=== PATIENT | female | born 1955 | race Caucasian/White ===

== ENCOUNTER → 2017-03-30 | Outpatient (CLI) | payer BC ==
--- NOTE | 2017-04-01 09:41 | MM ---
Reason for exam: screening (asymptomatic). Last mammogram was performed 1 year and 9 months ago. History: Patient is postmenopausal, has history of other cancer at age 28, and had first child at age 29. Physical Findings: A clinical breast exam by your physician is recommended on an annual basis and results should be correlated with mammographic findings. MG Screening Mammo w CAD Bilateral CC and MLO view(s) were taken. Prior study comparison: June 28, 2015, bilateral MG screening mammo w CAD. June 09, 2014, bilateral MG screening mammo w CAD. June 06, 2013, bilateral digital screening mammo w/CAD. There are scattered fibroglandular densities. There is chronic nodularity in the right breast. No significant changes when compared with prior studies. ASSESSMENT: Negative, BI-RAD 1 RECOMMENDATION: Routine screening mammogram of both breasts in 1 year.
== END | disposition home or self-care (01) ==
LOC: RADMAMWWP 16:54
PROVIDERS: ATTEND Family Medicine
DX: Z12.31 Encounter for screening mammogram for malignant neoplasm of breast (principal)

== ENCOUNTER → 2019-01-20 | Outpatient (CLI) | payer BC ==
--- NOTE | 2019-01-21 11:09 | MM ---
Reason for exam: screening (asymptomatic). Last mammogram was performed 1 year and 10 months ago. History: Patient is postmenopausal, has history of other cancer at age 28, and had first child at age 29. Physical Findings: A clinical breast exam by your physician is recommended on an annual basis and results should be correlated with mammographic findings. MG Screening Mammo w CAD Bilateral CC and MLO view(s) were taken. XCCL view(s) were taken of the right breast. Prior study comparison: March 30, 2017, bilateral MG screening mammo w CAD. June 28, 2015, bilateral MG screening mammo w CAD. There are scattered fibroglandular densities. Enlarging right upper outer quadrant known sebaceous cyst seen back to 2013. No suspicious abnormality. ASSESSMENT: Benign, BI-RAD 2 RECOMMENDATION: Routine screening mammogram of both breasts in 1 year. Manage on a clinical basis with regard to enlarging known right sebaceous cyst. Dermatology consult.
== END | disposition home or self-care (01) ==
LOC: RADMAMWWP 16:57
PROVIDERS: ATTEND Obstetrics & Gynecology
DX: Z12.31 Encounter for screening mammogram for malignant neoplasm of breast (principal)
CPT/HCPCS: 77067

== ENCOUNTER → 2020-07-12 | Outpatient (CLI) | payer BC, MEDICARE ==
--- NOTE | 2020-07-18 09:27 | MM ---
Reason for exam: screening (asymptomatic). Last mammogram was performed 1 year and 6 months ago. History: Patient is postmenopausal, has history of other cancer at age 28, and had first child at age 29. Physical Findings: A clinical breast exam by your physician is recommended on an annual basis and results should be correlated with mammographic findings. MG Screening Mammo w CAD Bilateral CC and MLO view(s) were taken. Prior study comparison: January 20, 2019, bilateral MG screening mammo w CAD. March 30, 2017, bilateral MG screening mammo w CAD. There are scattered fibroglandular densities. Redemonstrated right mole. Benign appearing bilateral calcifications. No significant changes when compared with prior studies. ASSESSMENT: Benign, BI-RAD 2 RECOMMENDATION: Routine screening mammogram of both breasts in 1 year.
== END | disposition home or self-care (01) ==
LOC: RADMAMWWP 14:59
PROVIDERS: ATTEND Obstetrics & Gynecology
DX: Z12.31 Encounter for screening mammogram for malignant neoplasm of breast (principal)
CPT/HCPCS: 77067

== ENCOUNTER 2021-01-05 14:29 | Inpatient (IN) | payer MEDICARE ==
[2021-01-05] MEDS ORDERED: SODIUM CHLORIDE 0.9% 1,000 ML IV STA (15:20)
[2021-01-05] MEDS ORDERED: ONDANSETRON ODT 8 MG TAB.RAPDIS PO STA (15:20)
[2021-01-05] MEDS ORDERED: IBUPROFEN 600 MG TAB PO STA (15:21)
[2021-01-05] MEDS ORDERED: ACETAMINOPHEN TAB 500 MG TAB PO STA (15:21)
[2021-01-05 15:49] LABS: Appearance,Urine Cloudy (Clear); Bacteria,Urine Rare /hpf; Bilirubin,Urine Negative (Negative); Blood,Urine Negative (Negative); Color,Urine Yellow; Glucose,Urine (UA) Negative (Negative); Hyaline Casts,Urine 1 /lpf (0-2); Ketones,Urine Negative (Negative); Leukocyte Esterase,Urine Large (Negative); Mucus,Urine Rare /hpf; Nitrite,Urine Negative (Negative); Protein,Urine Negative (Negative); RBC,Urine 7 /hpf (0-5); Specific Gravity,Urine 1.022 (1.001-1.035); Squamous Epithelial Cell,Urine 10 /hpf (0-4); Urobilinogen,Urine <2.0 mg/dL (<2.0); WBC,Urine 1 /hpf (0-5)
[2021-01-05 15:58] LABS: ALT 30 U/L (4-34); AST 32 U/L (14-36); African American GFR (CKD) >90 (>60 ml/min/1.73 sqM); Albumin 3.8 g/dL (3.5-5.0); Alkaline Phosphatase 80 U/L (38-126); Amylase 47 U/L (30-110); Anion Gap 10 mmol/L; Blood Urea Nitrogen 19 mg/dL (7-17); Calcium 9.2 mg/dL (8.4-10.2); Carbon Dioxide 22 mmol/L (22-30); Chloride 103 mmol/L (98-107); Glucose 108 mg/dL (74-99); Lipase 40 U/L (23-300); Non-African American GFR(CKD) >90 (>60 ml/min/1.73 sqM); Potassium 3.9 mmol/L (3.5-5.1); Sodium 135 mmol/L (137-145); Total Bilirubin 0.9 mg/dL (0.2-1.3); Total Protein 6.7 g/dL (6.3-8.2)
[2021-01-05 16:04] LABS: Basophils % (A) 0 %; Eosinophils # (A) 0.2 k/uL (0-0.7); Eosinophils % (A) 1 %; HCT 37.8 % (34.0-46.0); HGB 12.8 gm/dL (11.4-16.0); Lymphocytes # (A) 0.5 k/uL (1.0-4.8); Lymphocytes % (A) 4 %; MCH 29.5 pg (25.0-35.0); MCHC 33.7 g/dL (31.0-37.0); MCV 87.4 fL (80.0-100.0); Mean Platelet Volume 7.5; Monocytes # (A) 0.6 k/uL (0-1.0); Monocytes % (A) 5 %; Neutrophils # (A) 11.2 k/uL (1.3-7.7); Neutrophils % (A) 89 %; Platelet Count 227 k/uL (150-450); RBC 4.33 m/uL (3.80-5.40); RDW 12.7 % (11.5-15.5); WBC 12.5 k/uL (3.8-10.6)
--- NOTE | 2021-01-05 17:13 | CT ---
EXAMINATION TYPE: CT abdomen pelvis w con DATE OF EXAM: 01/05/2021 COMPARISON: None HISTORY: Right lower quadrant tenderness, nausea and fever. CT DLP: 516.3 mGycm Automated exposure control for dose reduction was used. CONTRAST: Performed with IV Contrast, patient injected with 100 mL of Isovue 300. Lung bases are clear of consolidation. There is mild subsegmental atelectasis. Heart size is normal. There is no pericardial effusion. There is small hiatal hernia. The stomach is intact. Liver spleen pancreas gallbladder appear normal. Bile ducts are not dilated. There is no adrenal mass. Kidneys show satisfactory contrast opacification. There is no hydronephrosi s. Ureters are not dilated. Delayed images show normal renal excretion. There is no retroperitoneal a denopathy. Bladder distends smoothly. There is no inguinal hernia. There is no evidence of pelvic mas s. Uterus appears normal. There is disc space narrowing at L4-5 with disc herniation posteriorly. There is no compression fract ure. There is no evidence of a pelvic mass. There is no free fluid in the pelvis. There is retained fecal material in the large bowel. There is tubular structure with some mild adjace nt fat stranding inferior to the cecum and measuring up to 11 mm related to acute appendicitis. IMPRESSION: Thickened appendix with fluid and surrounding inflammatory changes related to acute appendicitis. Mild constipation. Mild posterior L4-5 lumbar disc herniation.
[2021-01-05] MEDS ORDERED: PIPERACILLIN-TAZOBACTAM 3.375 GM in SODIUM CHLORIDE 0.9% 100 ML IVPB STA (17:16)
--- NOTE | 2021-01-05 17:50 | ED ---
General Adult HPI - General Chief complaint: Nausea/Vomiting/Diarrhea Stated complaint: Fever,Nausea Time Seen by Provider: 01/05/21 14:38 Source: patient, RN notes reviewed Mode of arrival: ambulatory Limitations: no limitations - History of Present Illness Initial comments: 65-year-old female without any significant medical problems presents to the em ergency room for a chief complaint of abdominal pain. Patient reports that she has had right lower quadrant abdominal pain since last night. She has had some nausea associated with this as well. Denies any vomiting. States bowel movements have been normal. States she has not had an appetite and did not want to eat anything today. Overall she is not feeling well. Patient states she checked her temperature today and it was 102.7 at home. She did not take Motrin or Tylenol. Patient states she has never had abdominal surgery, does not have a surgeon.Patient has no other complaints at this time including shortness of breath, chest pain, headache, or visual changes. - Related Data Home Medications Medication Instructions Recorded Confirmed prednisoLONE ACETATE 1% OPHTH 1 drop RIGHT EYE QID 01/05/21 01/05/21 [Pred Forte 1%] Allergies Allergy/AdvReac Type Severity Reaction Status Date / Time trey Allergy Anaphylaxis Verified 01/05/21 17:18 Review of Systems ROS Statement: Those systems with pertinent positive or pertinent negative responses have been documented in the HPI. ROS Other: All systems not noted in ROS Statement are negative. Past Medical History Past Medical History: No Reported History History of Any Multi-Drug Resistant Organisms: None Reported Past Surgical History: No Surgical Hx Reported Past Psychological History: Depression Smoking Status: Never smoker Past Alcohol Use History: Occasional Past Drug Use History: None Reported General Exam Limitations: no limitations General appearance: alert, in no apparent distress Head exam: Present: atraumatic, normocephalic, normal inspection Eye exam: Present: normal appearance, PERRL, EOMI. Absent: scleral icterus, conjunctival injection, periorbital swelling ENT exam: Present: normal exam, mucous membranes moist Neck exam: Present: normal inspection. Absent: tenderness, meningismus, lymphadenopathy Respiratory exam: Present: normal lung sounds bilaterally. Absent: respiratory distress, wheezes, rales, rhonchi, stridor Cardiovascular Exam: Present: regular rate, normal rhythm, normal heart sounds. Absent: systolic murmur, diastolic murmur, rubs, gallop, clicks GI/Abdominal exam: Present: soft, tenderness (RLQ tenderness without gaurding or rebound), normal bowel sounds. Absent: distended, guarding, rebound, rigid Back exam: Absent: CVA tenderness (R), CVA tenderness (L) Neurological exam: Present: alert Course Vital Signs 01/05/21 01/05/21 14:31 15:46 Temperature 99.2 F Pulse Rate 120 H 98 Respiratory 16 18 Rate Blood Pressure 106/70 105/69 O2 Sat by Pulse 95 99 Oximetry Medical Decision Making - Medical Decision Making Vitals are stable. Patient initially tachycardic which did improve. This is likely secondary to her temperature of 100.7 that I rechecked upon arrival. The physicall exam did reveal right lower quadrant tenderness. Laboratory evaluation was initiated which showed leukocytosis of 12.5 with a left shift. CMP unremarkable. Urinalysis unremarkable. Mary virus negative. CT abdomen and pelvis did show a thickened appendix with fluid and surrounding inflammatory changes related to acute appendicitis. Patient started on Zosyn. Consult to Dr. Ordonez who requests an EKG, liquid diet until midnight and then nothing by mouth. - Lab Data Result diagrams: 01/05/21 15:41 01/05/21 15:41 Lab Results 01/05/21 01/05/21 01/05/21 Range/Units 15:30 15:41 15:41 WBC 12.5 H (3.8-10.6) k/uL RBC 4.33 (3.80-5.40) m/uL Hgb 12.8 (11.4-16.0) gm/dL Hct 37.8 (34.0-46.0) % MCV 87.4 (80.0-100.0) fL MCH 29.5 (25.0-35.0) pg MCHC 33.7 (31.0-37.0) g/dL RDW 12.7 (11.5-15.5) % Plt Count 227 (150-450) k/uL MPV 7.5 Neutrophils % 89 % Lymphocytes % 4 % Monocytes % 5 % Eosinophils % 1 % Basophils % 0 % Neutrophils # 11.2 H (1.3-7.7) k/uL Lymphocytes # 0.5 L (1.0-4.8) k/uL Monocytes # 0.6 (0-1.0) k/uL Eosinophils # 0.2 (0-0.7) k/uL Basophils # 0.0 (0-0.2) k/uL Sodium (137-145) mmol/L Potassium (3.5-5.1) mmol/L Chloride (98-107) mmol/L Carbon Dioxide (22-30) mmol/L Anion Gap mmol/L BUN (7-17) mg/dL Creatinine (0.52-1.04) mg/dL Est GFR (CKD-EPI)AfAm (>60 ml/min/1.73 sqM) Est GFR (CKD-EPI)NonAf (>60 ml/min/1.73 sqM) Glucose (74-99) mg/dL Plasma Lactic Acid Antonio (0.7-2.0) mmol/L Calcium (8.4-10.2) mg/dL Total Bilirubin (0.2-1.3) mg/dL AST (14-36) U/L ALT (4-34) U/L Alkaline Phosphatase (38-126) U/L Total Protein (6.3-8.2) g/dL Albumin (3.5-5.0) g/dL Amylase (30-110) U/L Lipase (23-300) U/L Urine Color Yellow Urine Appearance Cloudy H (Clear) Urine pH 7.0 (5.0-8.0) Ur Specific Montague 1.022 (1.001-1.035) Urine Protein Negative (Negative) Urine Glucose (UA) Negative (Negative) Urine Ketones Negative (Negative) Urine Blood Negative (Negative) Urine Nitrite Negative (Negative) Urine Bilirubin Negative (Negative) Urine Urobilinogen <2.0 (<2.0) mg/dL Ur Leukocyte Esterase Large H (Negative) Urine RBC 7 H (0-5) /hpf Urine WBC 1 (0-5) /hpf Ur Squamous Epith Cells 10 H (0-4) /hpf Urine Bacteria Rare H (None) /hpf Hyaline Casts 1 (0-2) /lpf Urine Mucus Rare H (None) /hpf Coronavirus (PCR) Not Detected (Not Detectd) 01/05/21 01/05/21 Range/Units 15:41 15:41 WBC (3.8-10.6) k/uL RBC (3.80-5.40) m/uL Hgb (11.4-16.0) gm/dL Hct (34.0-46.0) % MCV (80.0-100.0) fL MCH (25.0-35.0) pg MCHC (31.0-37.0) g/dL RDW (11.5-15.5) % Plt Count (150-450) k/uL MPV Neutrophils % % Lymphocytes % % Monocytes % % Eosinophils % % Basophils % % Neutrophils # (1.3-7.7) k/uL Lymphocytes # (1.0-4.8) k/uL Monocytes # (0-1.0) k/uL Eosinophils # (0-0.7) k/uL Basophils # (0-0.2) k/uL Sodium 135 L (137-145) mmol/L Potassium 3.9 (3.5-5.1) mmol/L Chloride 103 (98-107) mmol/L Carbon Dioxide 22 (22-30) mmol/L Anion Gap 10 mmol/L BUN 19 H (7-17) mg/dL Creatinine 0.60 (0.52-1.04) mg/dL Est GFR (CKD-EPI)AfAm >90 (>60 ml/min/1.73 sqM) Est GFR (CKD-EPI)NonAf >90 (>60 ml/min/1.73 sqM) Glucose 108 H (74-99) mg/dL Plasma Lactic Acid Antonio 0.8 (0.7-2.0) mmol/L Calcium 9.2 (8.4-10.2) mg/dL Total Bilirubin 0.9 (0.2-1.3) mg/dL AST 32 (14-36) U/L ALT 30 (4-34) U/L Alkaline Phosphatase 80 (38-126) U/L Total Protein 6.7 (6.3-8.2) g/dL Albumin 3.8 (3.5-5.0) g/dL Amylase 47 (30-110) U/L Lipase 40 (23-300) U/L Urine Color Urine Appearance (Clear) Urine pH (5.0-8.0) Ur Specific Montague (1.001-1.035) Urine Protein (Negative) Urine Glucose (UA) (Negative) Urine Ketones (Negative) Urine Blood (Negative) Urine Nitrite (Negative) Urine Bilirubin (Negative) Urine Urobilinogen (<2.0) mg/dL Ur Leukocyte Esterase (Negative) Urine RBC (0-5) /hpf Urine WBC (0-5) /hpf Ur Squamous Epith Cells (0-4) /hpf Urine Bacteria (None) /hpf Hyaline Casts (0-2) /lpf Urine Mucus (None) /hpf Coronavirus (PCR) (Not Detectd) Disposition Clinical Impression: Appendicitis Disposition: ADMITTED IP TO THIS HOSP Is patient prescribed a controlled substance at d/c from ED?: No Referrals: Robert Cabrera MD [Primary Care Provider] - 1-2 days Time of Disposition: 17:50
[2021-01-05] MEDS ORDERED: HYDROmorphone 0.5 MG/0.5 ML SYRINGE IVP PRN (17:51)
[2021-01-05] MEDS ORDERED: NALOXONE 0.4 MG/ML 1 ML VIAL IV PRN (17:51)
[2021-01-05] MEDS ORDERED: ONDANSETRON 4 MG/2 ML VIAL IVP PRN (17:51)
[2021-01-05] MEDS: PIPERACILLIN-TAZOBACTAM 3.375 GM in SODIUM CHLORIDE 0.9% 100 ML IVPB SCH (19:28)
[2021-01-05] MEDS: ENOXAPARIN 30 MG/0.3 ML SYRINGE SQ SCH (19:43)
--- NOTE | 2021-01-05 19:54 | P.GSHP ---
History of Present Illness H&P Date: 01/05/21 CHIEF COMPLAINT: Right lower quadrant abdominal pain with appendicitis less than 1 day. HISTORY OF PRESENT ILLNESS: The patient is a previously healthy 65-year-old female who presents with less than 1 day history of periumbilical with right lower quadrant abdominal pain that started earlier in the morning. She denies any previous episodes. No reports of diarrhea. No reports of prior abdominal pain. She states the intensity of the pain is mild to moderate. She denies any alleviating factors. PAST MEDICAL HISTORY: Please see list and reviewed. PAST SURGICAL HISTORY: Please see list and reviewed. CURRENT MEDICATIONS: Please see list and reviewed. ALLERGIES: Please see list and reviewed. SOCIAL HISTORY: Please see list and reviewed. FAMILY HISTORY: Please see list and reviewed. REVIEW OF ORGAN SYSTEMS: CONSTITUTIONAL: Denies any fever or chills. HEENT: Denies any trouble with hearing or nosebleeds. No difficulty swallowing. Has trouble with vision and previous left eye surgery. LYMPHATIC: The patient denies any lumps and bumps around the neck. ENDOCRINE: Denies any thyroid disorders. Denies any blood sugar glucose intolerance. RESPIRATORY: Denies shortness of breath including chronic cough. CARDIOVASCULAR: Denies history of chest pain with exertion. GASTROINTESTINAL: Denies regurgitation of bile at night as well as intermittent nausea. No blood in stools. GENITOURINARY: Denies any blood in urine or increased urinary frequency. MUSCULOSKELETAL: Denies current joint arthritis. NEUROLOGIC: Denies any numbness or tingling along the distal extremities. No seizure disorders or headaches. PSYCHIATRIC: Has depression. No suicidal ideation. HEMATOLOGIC: Denies any abnormal bleeding or bruising. GENERAL MEDICAL CARE: The patient sees primary care physician regularly. SKIN: history of basal cell cancer. PHYSICAL EXAMINATION: Vital signs: Reviewed GENERAL: Well developed and in no acute distress. HEENT: No sclera icterus. Extraocular movements grossly intact. Moist buccal mucosa. Head is atraumatic, normocephalic. Hears conversational speech. No nasal drainage. NECK: Supple without lymphadenopathy. No JV distention. CHEST: Non-labored respirations and equal bilateral excursions. CARDIOVASCULAR: Regular rate and rhythm. Palpable 2+ radial pulses. ABDOMEN: Soft, tender at the right lower quadrant. No peritonitis. MUSCULOSKELETAL: No clubbing, cyanosis or edema. NEUROLOGIC: No focal or lateralizing signs. Cranial nerves II through XII grossly intact. PSYCH: Appropriate affect. Alert and oriented to person, place and time. SKIN: Well perfused. Good skin turgor. LABS: WBC over 12,000. Coronavirus negative. Urinalysis positive for leukocyte esterase and blood with pyuria STUDIES: CT of the abdomen and pelvis independently reviewed with dilated appendix. Moderate stool burden throughout the entire colon. This is my independent interpretation. REPORT: CT of the abdomen and pelvis report reviewed demonstrating dilated appendix including L4 to L5 disc herniation EKG: Report reviewed demonstrating normal sinus rhythm ASSESSMENT: 1. Acute appendicitis 2. Leukocytosis 3. Depressive disorder 4. Pyuria PLAN: 1. I have discussed benefits and risks of robotic appendectomy. 2. Antibiotics, zosyn for leukocytosis 3. Clear liquid diet withnothing by mouth after midnight 4. DVT prophylaxis Past Medical History Past Medical History: No Reported History History of Any Multi-Drug Resistant Organisms: None Reported Past Surgical History: No Surgical Hx Reported Past Psychological History: Depression Smoking Status: Never smoker Past Alcohol Use History: Occasional Past Drug Use History: None Reported - Past Family History Father Family Medical History: No Reported History Medications and Allergies Home Medications Medication Instructions Recorded Confirmed Type prednisoLONE ACETATE 1% OPHTH 1 drop RIGHT EYE QID 01/05/21 01/05/21 History [Pred Forte 1%] Allergies Allergy/AdvReac Type Severity Reaction Status Date / Time trey Allergy Anaphylaxis Verified 01/05/21 19:48 Surgical - Exam Vital Signs Temp Pulse Resp BP Pulse Ox 99.2 F 120 H 16 106/70 95 01/05/21 14:31 01/05/21 14:31 01/05/21 14:31 01/05/21 14:31 01/05/21 14:31 Results - Labs 01/06/21 07:13 01/05/21 15:41 Abnormal Lab Results - Last 24 Hours (Table) 01/05/21 01/05/21 01/05/21 Range/Units 15:41 15:41 15:41 WBC 12.5 H (3.8-10.6) k/uL Neutrophils # 11.2 H (1.3-7.7) k/uL Lymphocytes # 0.5 L (1.0-4.8) k/uL Sodium 135 L (137-145) mmol/L BUN 19 H (7-17) mg/dL Glucose 108 H (74-99) mg/dL Urine Appearance Cloudy H (Clear) Ur Leukocyte Esterase Large H (Negative) Urine RBC 7 H (0-5) /hpf Ur Squamous Epith Cells 10 H (0-4) /hpf Urine Bacteria Rare H (None) /hpf Urine Mucus Rare H (None) /hpf Diabetes panel 01/05/21 Range/Units 15:41 Sodium 135 L (137-145) mmol/L Potassium 3.9 (3.5-5.1) mmol/L Chloride 103 (98-107) mmol/L Carbon Dioxide 22 (22-30) mmol/L BUN 19 H (7-17) mg/dL Creatinine 0.60 (0.52-1.04) mg/dL Glucose 108 H (74-99) mg/dL Calcium 9.2 (8.4-10.2) mg/dL AST 32 (14-36) U/L ALT 30 (4-34) U/L Alkaline Phosphatase 80 (38-126) U/L Total Protein 6.7 (6.3-8.2) g/dL Albumin 3.8 (3.5-5.0) g/dL Calcium panel 01/05/21 Range/Units 15:41 Calcium 9.2 (8.4-10.2) mg/dL Albumin 3.8 (3.5-5.0) g/dL Pituitary panel 01/05/21 Range/Units 15:41 Sodium 135 L (137-145) mmol/L Potassium 3.9 (3.5-5.1) mmol/L Chloride 103 (98-107) mmol/L Carbon Dioxide 22 (22-30) mmol/L BUN 19 H (7-17) mg/dL Creatinine 0.60 (0.52-1.04) mg/dL Glucose 108 H (74-99) mg/dL Calcium 9.2 (8.4-10.2) mg/dL Adrenal panel 01/05/21 Range/Units 15:41 Sodium 135 L (137-145) mmol/L Potassium 3.9 (3.5-5.1) mmol/L Chloride 103 (98-107) mmol/L Carbon Dioxide 22 (22-30) mmol/L BUN 19 H (7-17) mg/dL Creatinine 0.60 (0.52-1.04) mg/dL Glucose 108 H (74-99) mg/dL Calcium 9.2 (8.4-10.2) mg/dL Total Bilirubin 0.9 (0.2-1.3) mg/dL AST 32 (14-36) U/L ALT 30 (4-34) U/L Alkaline Phosphatase 80 (38-126) U/L Total Protein 6.7 (6.3-8.2) g/dL Albumin 3.8 (3.5-5.0) g/dL Assessment and Plan (1) Leukocytosis Current Visit: Yes Status: Acute Code(s): D72.829 - ELEVATED WHITE BLOOD CELL COUNT, UNSPECIFIED SNOMED Code(s): 190045898 (2) Depressive disorder Current Visit: Yes Status: Acute Code(s): F32.9 - MAJOR DEPRESSIVE DISORDER, SINGLE EPISODE, UNSPECIFIED SNOMED Code(s): 97549657 (3) Pyuria Current Visit: Yes Status: Acute Code(s): R82.81 - PYURIA SNOMED Code(s): 7408995 (4) Appendicitis Current Visit: Yes Status: Acute Code(s): K37 - UNSPECIFIED APPENDICITIS SNOMED Code(s): 13568580
[2021-01-05] MEDS ORDERED: SODIUM CHLORIDE 0.9% 2,000 ML IV ONE (21:21)
[2021-01-05] MEDS: SODIUM CHLORIDE 0.9% 1,000 ML IV SCH (23:50)
[2021-01-05] MEDS: ACETAMINOPHEN TAB 325 MG TAB PO PRN (23:53)
[2021-01-06] MEDS: PIPERACILLIN-TAZOBACTAM 3.375 GM in SODIUM CHLORIDE 0.9% 100 ML IVPB SCH ×3 (03:24→18:46)
[2021-01-06] MEDS: ACETAMINOPHEN TAB 325 MG TAB PO PRN ×2 (03:50→16:28)
[2021-01-06] MEDS: SODIUM CHLORIDE 0.9% 1,000 ML IV SCH ×3 (03:51→23:10)
--- NOTE | 2021-01-06 07:11 | P.HPADDEND ---
H&P Addendum H&P Addendum Date: 01/06/21 Patient presents with right lower quadrant abdominal pain and appendicitis. Benefits and risks of appendectomy described. We'll proceed with robotic appendectomy.
[2021-01-06 07:30] LABS: Basophils % (A) 0 %; Eosinophils # (A) 0.1 k/uL (0-0.7); Eosinophils % (A) 1 %; HCT 35.4 % (34.0-46.0); HGB 11.8 gm/dL (11.4-16.0); Lymphocytes # (A) 0.3 k/uL (1.0-4.8); Lymphocytes % (A) 4 %; MCH 29.9 pg (25.0-35.0); MCHC 33.4 g/dL (31.0-37.0); MCV 89.5 fL (80.0-100.0); Mean Platelet Volume 7.3; Monocytes # (A) 0.2 k/uL (0-1.0); Monocytes % (A) 3 %; Neutrophils # (A) 6.6 k/uL (1.3-7.7); Neutrophils % (A) 92 %; Platelet Count 203 k/uL (150-450); RBC 3.95 m/uL (3.80-5.40); RDW 13.1 % (11.5-15.5); WBC 7.2 k/uL (3.8-10.6)
[2021-01-06] MEDS: PANTOPRAZOLE 40 MG/10 ML VIAL IV SCH (07:42)
[2021-01-06] MEDS ORDERED: NEOSTIGMINE 1 MG/ML 10 ML VIAL ONE (08:10)
[2021-01-06] MEDS ORDERED: GLYCOPYRROLATE 0.2 MG/ML 2 ML VIAL ONE (08:10)
[2021-01-06] MEDS ORDERED: PHENYLEPHRINE-0.9% NACL SYG 1,000 MCG/10 ML SYRINGE ONE (08:10)
[2021-01-06] MEDS ORDERED: ONDANSETRON 4 MG/2 ML VIAL ONE (08:10)
[2021-01-06] MEDS ORDERED: PROPOFOL 10 MG/ML 20 ML VIAL IV ONE (08:10)
[2021-01-06] MEDS ORDERED: ROCURONIUM 10 MG/ML (5 ML VIAL) IV ONE (08:10)
[2021-01-06] MEDS ORDERED: MIDAZOLAM 2 MG/2 ML VIAL ONE (08:10)
[2021-01-06] MEDS ORDERED: DEXAMETHASONE SOD PHOSPHATE 10 MG/ML 1 ML VIAL ONE (08:10)
[2021-01-06] MEDS ORDERED: SUCCINYLCHOLINE CHLORIDE 100 MG/5 ML SYR IV ONE (08:10)
[2021-01-06] MEDS ORDERED: LIDOCAINE 1% INJ 10MG/ML (20 ML MDV) ONE (08:10)
[2021-01-06] MEDS ORDERED: fentaNYL (PF) 50 MCG/ML 2 ML AMP ONE (08:10)
[2021-01-06] MEDS ORDERED: SODIUM CHLORIDE 0.9% 1,000 ML IV ONE (08:13)
[2021-01-06] MEDS ORDERED: SODIUM CHLORIDE 0.9% 50 ML with ceFAZolin 1,000 MG IV ONE ×2 (08:24)
[2021-01-06] MEDS ORDERED: BUPIVACAIN-EPI 0.5%-1:200,000 30 ML VIAL SQ ONE (08:34)
[2021-01-06] MEDS ORDERED: LACTATED RINGERS 1,000 ML IV ONE (09:16)
--- NOTE | 2021-01-06 09:55 | P.OP ---
Date of Procedure: 01/06/21 Description of Procedure: SURGEON: ROMY MENDEZ MD Preoperative Diagnosis: 1. Acute appendicitis 2. Depressive disorder Postoperative Diagnosis: 1. Acute appendicitis, retrocecal with periappendicitis with microperforation 2. Right lower quadrant intra-abdominal abscess, pelvis 3. Peritoneal adhesions, right lower quadrant Procedure(s) Performed: 1. Robotic-assisted daVinci Xi laparoscopic lysis of adhesions 2. Robotic-assisted daVinci Xi laparoscopic appendectomy with drainage of pelvic abscess Anesthesia: GETA, local Estimated Blood Loss (ml): 5 Pathology: other (appendix) Condition: stable Disposition: floor Operative Findings: 1. Acute appendicitis with microperforation at base of appendix 2. Intrapelvic abscesses drained INDICATIONS: The patient is a 65-year-old female who presents with acute appendicitis. Benefits and risks, including infection, open surgery, and bleeding for additional surgery was discussed at length. Informed consent was obtained. All questions of the patient and family were answered. DESCRIPTION: The patient was transferred to the operating room and placed in supine position. The patient had previously voided. The abdomen was then prepped and draped in standard sterile fashion as Ioban was placed along the abdomen to minimize any contamination of skin floor. After a timeout protocol was performed, attention was then brought to the left upper quadrant whereby a 0 degree 5 mm laparoscopic trocar entry was performed. The abdominal cavity was entered and insufflated to 12 mmHg pressure, which was tolerated well. Diagnostic laparoscopy demonstrated no injury to bowel, viscera or mesentery. Next a robotic 8-mm trocar was placed along the left lower quadrant, 10-cm lateral to the midline. A 12 mm port was placed along the left upper quadrant and another 8-mm port left lateral abdominal wall. Ports were placed 8 cm apart from each other including 15-20 cm away from the target anatomy of the right pelvis. The patient was then placed in Trendelenburg position, at least 10 down and right side up at least 14. The robotic da Leatha XI system was primed and docked from the left side of the patient. Using atraumatic graspers and vessel sealer, the robotic system was docked and primed as described. Instruments were interchanged by the sales operations assistant including graspers, robotic stapler and vessel sealer. Next, attention was brought to identify the cecum. A systematic view within the abdominal cavity was started with the small bowel which was unremarkable. The base of the cecum was unremarkable. No inguinal hernias were identified. The base of the cecum was adherent to the right lateral abdominal wall. The appendix was adherent and retrocecal. . Lysis of adhesions using vessel sealer was performed. Dissection was used to release the base of the cecum from the abdominal wall including the appendix. Additionally, intrapelvic abscess and appendiceal abscess was drained. Approximately 10 mL of purulent abdominal ascites was removed from the abdominal cavity until dry. Anaerobic and aerobic cultures were obtained. Blue 45 mm robotic staple loads were fired along the base of the appendix. The staple line was hemostatic. Hemostasis was checked prior to undocking the robot. The robot was undocked. I re-scrubbed into the case. The specimen was removed from the abdominal cavity with an Endo Catch bag through the 12 mm trocar at the left upper quadrant. The port site was closed with 0 Vicryl and Osmel Albright. All instruments and pneumoperitoneum were evacuated from the abdominal cavity. Local anesthetic was infiltrated to all wounds for postop analgesia. All incisions were also cleansed with diluted hydrogen peroxide. The incisions were closed with 4-0 Monocryl. Exofin glue was applied to the rest of the skin incisions. The patient had tolerated the procedure well. The patient was extubated successfully. The patient was transferred to the postanesthesia care unit in stable condition.
[2021-01-06] MEDS: SIMETHICONE 80 MG CHEWABLE PO SCH ×3 (10:42→21:48)
[2021-01-06] MEDS: KETOROLAC 15 MG/ML 1 ML VIAL IVP SCH ×3 (12:12→23:09)
--- NOTE | 2021-01-06 14:30 | P.PN ---
Progress Note - Text Progress Note Date: 01/06/21 She is lethargic. She has yet to try diet. Continue hospitalization once alert, voiding spontaneously, tolerating diet, and pain controlled.
[2021-01-06] MEDS: prednisoLONE ACETATE 1% OPHTH DROPS 5 ML BTL RIGHT EYE SCH ×3 (17:42→21:48)
[2021-01-06] MEDS: ENOXAPARIN 30 MG/0.3 ML SYRINGE SQ SCH (17:45)
[2021-01-07] MEDS: PIPERACILLIN-TAZOBACTAM 3.375 GM in SODIUM CHLORIDE 0.9% 100 ML IVPB SCH ×2 (03:15→11:01)
[2021-01-07] MEDS: KETOROLAC 15 MG/ML 1 ML VIAL IVP SCH ×2 (05:44→10:59)
[2021-01-07 06:24] LABS: Basophils % (A) 0 %; Eosinophils % (A) 0 %; HCT 28.7 % (34.0-46.0); Lymphocytes # (A) 0.7 k/uL (1.0-4.8); Lymphocytes % (A) 9 %; MCH 29.9 pg (25.0-35.0); MCHC 33.8 g/dL (31.0-37.0); MCV 88.7 fL (80.0-100.0); Monocytes # (A) 0.4 k/uL (0-1.0); Monocytes % (A) 5 %; Neutrophils # (A) 6.7 k/uL (1.3-7.7); Neutrophils % (A) 85 %; Platelet Count 177 k/uL (150-450); RBC 3.23 m/uL (3.80-5.40); RDW 13.2 % (11.5-15.5); WBC 7.9 k/uL (3.8-10.6)
[2021-01-07 06:27] LABS: HGB 9.7 gm/dL (11.4-16.0)
[2021-01-07] MEDS: SODIUM CHLORIDE 0.9% 1,000 ML IV SCH (08:11)
[2021-01-07] MEDS: prednisoLONE ACETATE 1% OPHTH DROPS 5 ML BTL RIGHT EYE SCH ×2 (08:11→13:03)
[2021-01-07] MEDS: PANTOPRAZOLE 40 MG/10 ML VIAL IV SCH (08:12)
[2021-01-07] MEDS: SIMETHICONE 80 MG CHEWABLE PO SCH (08:12)
[2021-01-07 13:58] VITALS: BP 93/53; PULSE 67; RESP 18; TEMP 98.4
--- NOTE | 2021-01-07 14:01 | P.DS ---
Providers Date of admission: 01/06/21 09:55 Expected date of discharge: 01/07/21 Attending physician: Staci Lind Consults: 01/05/21 17:30 Consult Physician Routine Consulting Provider: [facility] Consult Reason/Comments: [facility] Do you want consulting provider notified?: Yes Primary care physician: [place] Cabrera - Discharge Diagnosis(es) (1) Leukocytosis Current Visit: Yes Status: Acute (2) Depressive disorder Current Visit: Yes Status: Acute (3) Pyuria Current Visit: Yes Status: Acute (4) Appendicitis Current Visit: Yes Status: Acute (5) Perforated appendicitis Current Visit: Yes Status: Acute (6) Appendiceal abscess Current Visit: Yes Status: Acute Hospital Course: COURSE: The patient is a previously healthy 65-year-old female who presented with appendicitis and symptoms ongoing for 1-[address] confirmed appendicitis. She underwent robotic appendectomy. Findings included microperforation. She was maintained on antibiotics. White blood cell count moderately improved. Prior to discharge, she was tolerating diet. Pain was well controlled. She was voiding spontaneously. Discharge instructions were reviewed. PHYSICAL EXAMINATION: Vital signs: Reviewed GENERAL: Well developed and in no acute distress. HEENT: No sclera icterus. Extraocular movements grossly intact. Moist buccal mucosa. Head is atraumatic, normocephalic. Hears conversational speech. No nasal drainage. NECK: Supple without lymphadenopathy. No JV distention. CHEST: Non-labored respirations and equal bilateral excursions. CARDIOVASCULAR: Regular rate and rhythm. Palpable 2+ radial pulses. ABDOMEN: Incisions dry and intact without peritonitis. MUSCULOSKELETAL: No clubbing, cyanosis or edema. NEUROLOGIC: No focal or lateralizing signs. Cranial nerves II through XII grossly intact. PSYCH: Appropriate affect. Alert and oriented to person, place and time. SKIN: Well perfused. Good skin turgor. Laboratory Last Values WBC 7.9 k/uL (3.8-10.6) 01/07/21 05:42 RBC 3.23 m/uL (3.80-5.40) L 01/07/21 05:42 Hgb 9.7 gm/dL (11.4-16.0) L D 01/07/21 05:42 Hct 28.7 % (34.0-46.0) L 01/07/21 05:42 MCV 88.7 fL (80.0-100.0) 01/07/21 05:42 MCH 29.9 pg (25.0-35.0) 01/07/21 05:42 MCHC 33.8 g/dL (31.0-37.0) 01/07/21 05:42 RDW 13.2 % (11.5-15.5) 01/07/21 05:42 Plt Count 177 k/uL (150-450) 01/07/21 05:42 MPV 8.0 01/07/21 05:42 Neutrophils % 85 % 01/07/21 05:42 Lymphocytes % 9 % 01/07/21 05:42 Monocytes % 5 % 01/07/21 05:42 Eosinophils % 0 % 01/07/21 05:42 Basophils % 0 % 01/07/21 05:42 Neutrophils # 6.7 k/uL (1.3-7.7) 01/07/21 05:42 Lymphocytes # 0.7 k/uL (1.0-4.8) L 01/07/21 05:42 Monocytes # 0.4 k/uL (0-1.0) 01/07/21 05:42 Eosinophils # 0.0 k/uL (0-0.7) 01/07/21 05:42 Basophils # 0.0 k/uL (0-0.2) 01/07/21 05:42 Sodium 135 mmol/L (137-145) L 01/05/21 15:41 Potassium 3.9 mmol/L (3.5-5.1) 01/05/21 15:41 Chloride 103 mmol/L (98-107) 01/05/21 15:41 Carbon Dioxide 22 mmol/L (22-30) 01/05/21 15:41 Anion Gap 10 mmol/L 01/05/21 15:41 BUN 19 mg/dL (7-17) H 01/05/21 15:41 Creatinine 0.60 mg/dL (0.52-1.04) 01/05/21 15:41 Est GFR (CKD-EPI)AfAm >90 (>60 ml/min/1.73 sqM) 01/05/21 15:41 Est GFR (CKD-EPI)NonAf >90 (>60 ml/min/1.73 sqM) 01/05/21 15:41 Glucose 108 mg/dL (74-99) H 01/05/21 15:41 Plasma Lactic Acid Antonio 0.8 mmol/L (0.7-2.0) 01/05/21 15:41 Calcium 9.2 mg/dL (8.4-10.2) 01/05/21 15:41 Total Bilirubin 0.9 mg/dL (0.2-1.3) 01/05/21 15:41 AST 32 U/L (14-36) 01/05/21 15:41 ALT 30 U/L (4-34) 01/05/21 15:41 Alkaline Phosphatase 80 U/L (38-126) 01/05/21 15:41 Total Protein 6.7 g/dL (6.3-8.2) 01/05/21 15:41 Albumin 3.8 g/dL (3.5-5.0) 01/05/21 15:41 Amylase 47 U/L (30-110) 01/05/21 15:41 Lipase 40 U/L (23-300) 01/05/21 15:41 Urine Color Yellow 01/05/21 15:41 Urine Appearance Cloudy (Clear) H 01/05/21 15:41 Urine pH 7.0 (5.0-8.0) 01/05/21 15:41 Ur Specific [place] 1.022 (1.001-1.035) 01/05/21 15:41 Urine Protein Negative (Negative) 01/05/21 15:41 Urine Glucose (UA) Negative (Negative) 01/05/21 15:41 Urine Ketones Negative (Negative) 01/05/21 15:41 Urine Blood Negative (Negative) 01/05/21 15:41 Urine Nitrite Negative (Negative) 01/05/21 15:41 Urine Bilirubin Negative (Negative) 01/05/21 15:41 Urine Urobilinogen <2.0 mg/dL (<2.0) 01/05/21 15:41 Ur Leukocyte Esterase Large (Negative) H 01/05/21 15:41 Urine RBC 7 /hpf (0-5) H 01/05/21 15:41 Urine WBC 1 /hpf (0-5) 01/05/21 15:41 Ur Squamous Epith Cells 10 /hpf (0-4) H 01/05/21 15:41 Urine Bacteria Rare /hpf (None) H 01/05/21 15:41 Hyaline Casts 1 /lpf (0-2) 01/05/21 15:41 Urine Mucus Rare /hpf (None) H 01/05/21 15:41 Coronavirus (PCR) Not Detected (Not Detectd) 01/05/21 15:30 ASSESSMENT: 1. Acute appendicitis 2. Leukocytosis 3. Depressive disorder 4. Pyuria PLAN: 1. Stable for discharge Procedures: Procedure(s) Performed: 1. Robotic-assisted daVinci Xi laparoscopic lysis of adhesions 2. Robotic-assisted daVinci Xi laparoscopic appendectomy with drainage of pelvic abscess Anesthesia: GETA, local Estimated Blood Loss (ml): 5 Pathology: other (appendix) Condition: stable Disposition: floor Operative Findings: 1. Acute appendicitis with microperforation at base of appendix 2. Intrapelvic abscesses drained Patient Condition at Discharge: Good Plan - Discharge Summary Discharge Rx Participant: No New Discharge Prescriptions: New Acetaminophen [Tylenol] 650 mg PO Q6HR PRN #30 tab PRN Reason: Pain Ibuprofen [Motrin] 600 mg PO Q8HR PRN #30 tab PRN Reason: Pain Continue prednisoLONE ACETATE 1% OPHTH [Pred Forte 1%] 1 drop RIGHT EYE QID Discharge Medication List prednisoLONE ACETATE 1% OPHTH [Pred Forte 1%] 1 drop RIGHT EYE QID 01/05/21 [History] Acetaminophen [Tylenol] 650 mg PO Q6HR PRN #30 tab 01/07/21 [Rx] Ibuprofen [Motrin] 600 mg PO Q8HR PRN #30 tab 01/07/21 [Rx] Follow up Appointment(s)/Referral(s): Robert Cabrera MD [Primary Care Provider] - 1-2 days Staci Lind MD [STAFF PHYSICIAN] - 01/15/21 4:00 pm Patient Instructions/Handouts: Laparoscopic Appendectomy (DC) Activity/Diet/Wound Care/Special Instructions: Diet as tolerated. No lifting over 10 pounds in 2 weeks until January 20March shower. No bath tub soaks for two weeks until January 20 Use Tylenol and ibuprofen or Aleve scheduled for the next 24-48 hours for best pain relief. Use ice along incisions for today to prevent swelling. Call physician with any questions comments concerns worsening returning symptoms, not tolerating diet or fluids, pain not controlled by medications prescribed to you, and or fever 101.1 or higher. Discharge Disposition: HOME SELF-CARE
== END 2021-01-07 15:29 | disposition home or self-care (01) | DRG 339 ==
LOC: EC 14:29 → 6PED 17:51 → OBSVTOIN 01-06 09:55
PROVIDERS: ADMIT Surgery Plastic and Reconstructive Surgery; ATTEND Surgery Plastic and Reconstructive Surgery
PROC: 0DTJ4ZZ Resection of Appendix, Percutaneous Endoscopic Approach (ICD-10-PCS; principal; 2021-01-05)
PROC: 0W9G4ZZ Drainage of Peritoneal Cavity, Percutaneous Endoscopic Approach (ICD-10-PCS; 2021-01-05)
PROC: 8E0W4CZ Robotic Assisted Procedure of Trunk Region, Percutaneous Endoscopic Approach (ICD-10-PCS; 2021-01-05)
PROC: 0W9J4ZZ Drainage of Pelvic Cavity, Percutaneous Endoscopic Approach (ICD-10-PCS; 2021-01-06)
DX: K35.33 Acute appendicitis with perforation, localized peritonitis, and gangrene, with abscess (principal); R18.8 Other ascites; K66.0 Peritoneal adhesions (postprocedural) (postinfection); D72.829 Elevated white blood cell count, unspecified; R82.81 Pyuria; F32.9 Major depressive disorder, single episode, unspecified; Z20.822 Contact with and (suspected) exposure to COVID-19; Z85.828 Personal history of other malignant neoplasm of skin; Z79.899 Other long term (current) drug therapy
CPT/HCPCS: 36415; 74177; 80053; 81001; 82150; 83605; 83690; 85025; 87070; 87075; 87077; 87186; 87205; 87635; 88304; 93005; 96372; 99284

== ENCOUNTER → 2021-09-05 | Outpatient (CLI) | payer MEDICARE ==
--- NOTE | 2021-09-09 09:53 | MM ---
Reason for exam: screening (asymptomatic). Last mammogram was performed 1 year and 2 months ago. History: Patient is postmenopausal, has history of other cancer at age 28, and had first child at age 29. Physical Findings: A clinical breast exam by your physician is recommended on an annual basis and results should be correlated with mammographic findings. MG Screening Mammo w CAD Bilateral CC and MLO view(s) were taken. Prior study comparison: July 12, 2020, bilateral MG screening mammo w CAD. January 20, 2019, bilateral MG screening mammo w CAD. There are scattered fibroglandular densities. There is chronic nodularity in the right breast. No significant changes when compared with prior studies. ASSESSMENT: Benign, BI-RAD 2 RECOMMENDATION: Routine screening mammogram of both breasts in 1 year.
== END | disposition home or self-care (01) ==
LOC: RADMAMWWP 13:57
PROVIDERS: ATTEND Obstetrics & Gynecology
DX: Z12.31 Encounter for screening mammogram for malignant neoplasm of breast (principal); Z78.0 Asymptomatic menopausal state
CPT/HCPCS: 77067

== ENCOUNTER → 2022-09-11 | Outpatient (CLI) | payer MEDICARE ==
--- NOTE | 2022-09-12 08:30 | MM ---
Reason for Exam: Screening (asymptomatic). Last mammogram was performed 1 year(s) and 1 month(s) ago. Patient History: Menarche at age 11. First Full-Term at age 29. Late child-bearing (after 28). Postmenopausal. Other cancer, age 28. Risk Values: Judit 5 year model risk: 2.4%. NCI Lifetime model risk: 7.3%. Prior Study Comparison: 01/20/2019 Bilateral Screening Mammogram, [facility]. 07/12/2020 Bilateral Screening Mammogram, [facility]. 09/05/2021 Bilateral Screening Mammogram, [facility]. Tissue Density: The breast tissue is heterogeneously dense. This may lower the sensitivity of mammography. Findings: Analyzed By CAD. There is no suspicious group of microcalcifications or new suspicious mass in either breast. Overall Assessment: Negative, BI-RAD 1 Management: Screening Mammogram of both breasts in 1 year. A clinical breast exam by your physician is recommended on an annual basis and results should be correlated with mammographic findings. Electronically signed and approved by: Jerome Gonzalez M.D. Radiologis
== END | disposition home or self-care (01) ==
LOC: RADMAMWWP 16:49
PROVIDERS: ATTEND Obstetrics & Gynecology
DX: Z12.31 Encounter for screening mammogram for malignant neoplasm of breast (principal); Z78.0 Asymptomatic menopausal state
CPT/HCPCS: 77067

== ENCOUNTER → 2023-05-20 | Outpatient (CLI) | payer MEDICARE ==
--- NOTE | 2023-05-21 07:45 | BD ---
EXAMINATION TYPE: Axial Bone Density DATE OF EXAM: 05/20/2023 CLINICAL HISTORY: 67 years old Female. ICD-10 CODE: M89.9 DISORDER OF BONE, UNSPECIFIED Height: 5 ft 3 1/2 in Weight: 111 FRAX RISK QUESTIONS: Alcohol (3 or more units per day): no Family History (Parent hip fracture): yes Glucocorticoids (More than 3mos): no (Ex: prednisone, prednisolone, methylprednisolone, dexamethasone, and hydrocortisone). History of Fracture in Adulthood: no Secondary Osteoporosis: 1. Type 1 Diabetes: no 2. Hyperthyroidism: no 3. Menopause before 45: no 4. Malnutrition: no 5. Chronic liver disease: no Rheumatoid Arthritis: no Current Tobacco Use: no RISK FACTORS HISTORY OF: Surgery to Spine/Hip(right/left)/Wrist (right/left): no Family History of Osteoporosis: no Active: yes Diet low in dairy products/other sources of calcium: no Postmenopausal woman: yes Take estrogen and/or progesterone medications: no Lost more than 2 inches in height since high school: no Frequent falls: no Poor Health: good Hyperparathyroidism: no Adrenal Insufficiency: no MEDICATIONS: Additional Medications: glaucoma drops daily Additional History: EXAM MEASUREMENTS: Bone mineral densitometry was performed using the [employer] System. Bone mineral density as measured about the Lumbar spine is: ----- L1-L4(G/cm2): 0.909 T Score Values are as follows: ----- L1: -2.2 ----- L2: -3.0 ----- L3: -2.4 ----- L4: -1.7 ----- L1-L4: -2.3 Z Score Values are as follows: ----- L1: -0.1 ----- L2: -0.8 ----- L3: -0.2 ----- L4: 0.5 ----- L1-L4: -0.1 baseline Bone mineral density about the R hip (g/cm2): 0.716 Bone mineral density about the L hip (g/cm2): 0.678 T Score values are as follows: -----R Neck: -2.3 -----L Neck: -2.6 -----R Total: -2.7 -----L Total: -2.8 Z Score values are as follows: -----R Neck: -0.3 -----L Neck: -0.6 -----R Total: -0.9 -----L Total: -1.0 baseline FRAX%s: The graph provided illustrates a 13.3 % chance for a major osteoporotic fx and a 3.8 % chance for the hips probability for fx in 10 years time. IMPRESSION: Osteoporosis (T Score less than -2.5). There is increased fracture risk and therapy is usually indicated based on age. Re-Screen 1-2 years. NOTE: T-SCORE=SD OF THE YOUNG ADULT MEAN.
== END | disposition home or self-care (01) ==
LOC: RADBDWWP 14:54
PROVIDERS: ATTEND Family Medicine
DX: M81.0 Age-related osteoporosis without current pathological fracture (principal); M85.89 Other specified disorders of bone density and structure, multiple sites
CPT/HCPCS: 77080

== ENCOUNTER → 2024-08-24 | Outpatient (CLI) | payer MEDICARE ==
--- NOTE | 2024-08-25 10:14 | MM ---
Reason for Exam: Screening (asymptomatic). Last mammogram was performed 1 year(s) and 11 month(s) ago. Patient History: Menarche at age 11. First Full-Term at age 29. Late child-bearing (after 30). Postmenopausal. Other cancer, age 28. Risk Values: Judit 5 year model risk: 2.4%. NCI Lifetime model risk: 6.6%. Prior Study Comparison: 07/12/2020 Bilateral Screening Mammogram, [facility]. 09/05/2021 Bilateral Screening Mammogram, [facility]. 09/11/2022 Bilateral MG screening mammo w CAD, [facility]. Tissue Density: The breasts are almost entirely fatty. Findings: Analyzed By CAD. Right breast: Enlarging lesion right axilla now measuring 15 mm previously 10 mm on 07/12/2020 measuring 7.0 cm nipple. Slightly more lateral is a indeterminate lesion 7.0 cm the nipple measuring 5 mm. Left breast: There is no suspicious group of microcalcifications or new suspicious mass. Overall Assessment: Incomplete: need additional imaging evaluation, BI-RAD 0 Management: Diagnostic Breast Ultrasound of the right breast. [facility] will attempt to contact patient to return for supplemental views and ultrasound if indicated. Patient should continue monthly self-breast exams. A clinical breast exam by your physician is recommended on an annual basis. This exam should not preclude additional follow-up of suspicious palpable abnormalities. Note on Judit scores and lifetime risk: 1. A Judit score greater than 3% is considered moderate risk. If this is the case, consider specialist referral to assess eligibility for a risk reducing agent. 2. If overall lifetime risk for the development of breast cancer is 20% or higher, the patient may qualify for future screening with alternating mammogram and breast MRI. [facility], , 08/25/2024 10:11 AM. Electronically signed and approved by: Joaquín Dacosta DO
== END | disposition home or self-care (01) ==
LOC: RADMAMWWP 16:22
PROVIDERS: ATTEND Family Medicine
CPT/HCPCS: 77067

== ENCOUNTER → 2024-08-26 | Outpatient (CLI) | payer MEDICARE ==
--- NOTE | 2024-08-26 15:26 | USB ---
Reason for Exam: Additional evaluation requested from abnormal screening. Patient History: Menarche at age 11. First Full-Term at age 29. Late child-bearing (after 30). Postmenopausal. Other cancer, age 28. Risk Values: Judit 5 year model risk: 2.4%. NCI Lifetime model risk: 6.6%. Technique: Method: Targeted. Doppler: Color. Patient Position: Supine. Prior Study Comparison: 09/05/2021 Bilateral Screening Mammogram, [facility]. 09/11/2022 Bilateral MG screening mammo w CAD, [facility]. 08/24/2024 Bilateral MG screening mammo w CAD, [facility]. Findings: The upper outer quadrant of the right breast, the periareolar of the right breast, the axilla of the right breast and the retroareolar of the right breast were scanned. Technique utilized:US breast workup limited RT Image; Ultrasound imaging of: Area of concern, retroareolar region and axilla. * Hypoechoic mass just deep to the skin at 12:00 14 cm from nipple that correlate with abnormality in the axilla. This is slowly increased in size from prior imaging. Tissue sampling recommended for definitive diagnosis. * Smaller hypoechoic mass immediately adjacent to the larger mass also present measuring 5 mm corresponding with mammography findings. Overall Assessment: Suspicious, BI-RAD 4 Management: Ultrasound Core Biopsy of the right breast. A clinical breast exam by your physician is recommended on an annual basis and results should be correlated with mammographic findings. This exam should not preclude additional follow-up of suspicious palpable abnormalities. Results were given to the patient verbally at the time of exam. [facility], , 08/26/2024 3:22 PM. Electronically signed and approved by: Joaquín Dacosta DO
== END | disposition home or self-care (01) ==
LOC: RADUSWWP 14:55
PROVIDERS: ATTEND Family Medicine

== ENCOUNTER → 2024-09-08 | Day surgery (SDC) | payer MEDICARE ==
--- NOTE | 2024-09-08 14:04 | USB ---
Risk Values: Judit 5 year model risk: 2.4%. NCI Lifetime model risk: 6.6%. Procedure Description: Initial imaging at the patient's 12:00 palpable si Electronically signed and approved by: Yang Nunez M.D. Radiologist
== END ==
LOC: RADUSWWP 12:44
PROVIDERS: ATTEND Surgery
DX: R92.8 Other abnormal and inconclusive findings on diagnostic imaging of breast (principal)